=== PATIENT | female | born 1960 | race Caucasian/White ===

== ENCOUNTER 2016-11-05 14:14 | Outpatient (CLI) ==
--- NOTE | 2016-11-06 09:11 | MAMMO ---
EXAM: Digital screening mammogram HISTORY: Screening COMPARISON: 11/20/2013 FINDINGS: Digital MLO and CC views of the right and left breast were performed. Computer aided det ection was utilized. There are scattered fibroglandular densities. There is no evidence for mass, a symmetry, distortion, or suspicious calcifications in either breast. IMPRESSION: 1. No evidence of malignancy in the right or left breast. 2. Annual screening mammogram is recommended in one year. BIRADS category 1, negative examination
== END 2016-11-05 14:15 | disposition home or self-care (01) ==
LOC: RAD 14:14
PROVIDERS: ATTEND Nurse Practitioner Family
DX: Z12.31 Encounter for screening mammogram for malignant neoplasm of breast (principal)
CPT/HCPCS: 77067

== ENCOUNTER 2016-11-06 06:51 | Outpatient (CLI) ==
[2016-11-06 07:36] LABS: BASOPHILS # (AUTO) 0.1 K/uL (0-0.2); EOSINOPHILS # (AUTO) 0.4 K/ul (0.0-0.7); HEMATOCRIT 42.3 % (37.0-47.0); HEMOGLOBIN 14.5 g/dl (12.0-16.0); IMMATURE GRANULOCYTE % (AUTO) 0.3 % (0.0-5.0); LYMPHOCYTES # (AUTO) 1.9 K/uL (0.60-3.4); LYMPHOCYTES % (AUTO) 31.7 (10.0-50.0); MEAN CORPUSCULAR HEMOGLOBIN 31.7 pg (27.0-31.0); MEAN CORPUSCULAR HGB CONC 34.3 (31.8-35.4); MEAN CORPUSCULAR VOLUME 92.4 fl (81.0-99.0); MONOCYTES # (AUTO) 0.4 K/uL (0.4-2.0); MONOCYTES % (AUTO) 6.9 (0-10); NEUTROPHILS # (AUTO) 3.2 K/ul (2.0-6.9); NEUTROPHILS % (AUTO) 53.1; PLATELET COUNT 200 10^3/uL (140-440); RED BLOOD COUNT 4.58 10^6/ul (4.20-5.40); WHITE BLOOD COUNT 5.97 K/ul (4.6-10.2)
[2016-11-06 08:18] LABS: ALBUMIN 3.8 g/dL (3.4-5.0); ALBUMIN/GLOBULIN RATIO 1.19; ANION GAP 15.4; BILIRUBIN,TOTAL 0.59 mg/dL (0.00-1.20); BUN/CREATININE RATIO 15.38; CALCIUM 9.5 mg/dL (8.2-10.2); CHOL/HDL RATIO 3.6 (4.5-5.5); CREATININE 0.91 mg/dL (0.60-1.30); POTASSIUM 5.4 mmol/L (3.5-5.10)
== END 2016-11-06 06:52 | disposition home or self-care (01) ==
LOC: LAB 06:51
PROVIDERS: ATTEND Nurse Practitioner Family
DX: Z00.00 Encounter for general adult medical examination without abnormal findings (principal)
CPT/HCPCS: 36415; 80053; 80061; 84443; 85025